=== PATIENT | female | born 1980 | race Caucasian/White ===

== ENCOUNTER 2018-08-02 13:35 | Day surgery (SDC) | payer BC, MEDICAID ==
[2018-08-02 14:16] LABS: ABS Basophils 0 10^3/ul (0-0.2); ABS Eosinophils 0 10^3/ul (0-0.6); ABS Lymphocytes 1.6 10^3/ul (1.0-4.8); ABS Monocytes 0.6 10^3/ul (0-0.8); ABS Neutrophils 5.2 10^3/ul (1.5-7.7); ABS Nucleated RBC 0 10^3/ul; Eosinophil % 0.4 %; Hematocrit 42 % (33-41); Hemoglobin 13.8 g/dL (12.0-16.0); Lymphocyte % 21.4 %; Mean Corpuscular HGB Conc 33 g/dL (31-36); Mean Corpuscular Hemoglobin 31 pg (27-31); Mean Corpuscular Volume 95 fL (80-97); Mean Platelet Volume 7.3 fL (7.4-10.4); Nucleated Red Blood Cells % 0.1; Platelet Count 269 10^3/uL (150-450); Red Cell Distribution Width 13 % (10.5-15); White Blood Count 7.5 10^3/uL (3.5-10.8)
--- NOTE | 2018-08-02 14:19 | ED ---
Abdominal Pain/Female - HPI Summary HPI Summary: Patient is a 37 y/o F presenting to ED with complaints of RLQ pain, nausea, increased frequency of urination, and hematuria. She is present with female friend, Katie. On July 04 2018, patient started taking progesterone as she has not had a period since [place] . Progesterone was finished July 13 2018 but the patient had not had period afterwards. Three days ago, 07/30/18, patient came to [place] for a visit. Patient lives in [place] but is in [place] visiting as she is originally from this area. That day, 07/30/18, she reports experiencing an episode of hematuria. She notes no blood in underwear at the time. The next time she went to the bathroom that day, she saw blood in toilet once more. When she wiping there was minimal blood, therefore she does not believe it was vaginal bleeding. She called day habilitation specialist doctor in OBGYN at [place] where she is from, was advised to follow up in two days Friday. Yesterday, 08/01/18, urine was "normal" but hematuria returned later in the day. This morning, patient states she had increased urination frequency and RLQ abdominal pain. She notes that she has had what she describes as cramping period pain since 07/30/18 with onset of hematuria but she describes present pain from today as different. Pain is rated 8/10 in room. She took ibuprofen this morning at 0800, 800 mg. No PMHx of kidney stones. No radiation of pain reported, some diaphoresis noted earlier. Vomiting, fever is denied, states increased urgency of bowel movements, no diarrhea is reported. Last food patient had was almonds at around 0945 today, 08/02/18. No similar episodes of pain, no Hx of ovarian cyst is reported. Hx of irregular periods is noted, patient had a child 8.5 years ago, had previous miscarriage and as well. No dye allergy is noted. Phentermine and topamax is taken "short-term" per patient. PSHx of myringotomy. Patient's friend is agreeable to drive patient home. Patient is not sexually active, no chance of . FMHx of endometriosis in mother. Appendix, gallbladder is still present. She has picture of gross hematuria from previous days. In room, pulse 53, o2 100. Home medications and allergies are reviewed. On triage, pain is rated 8/10, nothing is noted to aggravate/alleviate Sx. Home medications and allergies are reviewed. Allergies Allergy/AdvReac Type Severity Reaction Status Date / Time No Known Allergies Allergy Verified 08/02/18 13:42 - History of Current Complaint Chief Complaint: EDAbdPain Stated Complaint: RIGHT ABD/FLANK PAIN BLOOD IN URINE PER PT Time Seen by Provider: 08/02/18 13:46 Hx Obtained From: Patient ?: No Onset/Duration: Lasting Days - Three days ago, 07/30/18, Still Present, Worse Since - this morning, RLQ pain, increased frequency of urination Timing: Constant - Three days ago, 07/30/18 Severity Initially: Moderate Severity Currently: Severe - 8/10 Pain Intensity: 8 Pain Scale Used: 0-10 Numeric - 8/10 Location: Discrete At: RLQ Radiates: No Character: Cramping - previously, since this morning pain has become "different " Aggravating Factor(s): Nothing Alleviating Factor(s): Nothing Associated Signs and Symptoms: Positive: Urinary Symptoms - hematuria, Nausea, Other: - increased frequency of urination, some diaphoresis, increased urgency of bowel movements. Negative: Fever, Vaginal Bleeding, Vomiting, Diarrhea Allergies/Adverse Reactions: Allergies Allergy/AdvReac Type Severity Reaction Status Date / Time No Known Allergies Allergy Verified 08/02/18 13:42 Home Medications: Home Medications Phentermine HCl 0.5 tab PO DAILY 08/02/18 [History Confirmed 08/02/18] Topiramate [Topamax] 25 - 50 mg PO BID 08/02/18 [History Confirmed 08/02/18] PMH/Surg Hx/FS Hx/Imm Hx Previously Healthy: Yes History: Reports: Other Problems/Disorders - no Hx of ovarian cysts Sensory History: Denies: Hx Legally Blind, Hx Deafness Opthamlomology History: Denies: Hx Legally Blind EENT History: Denies: Hx Deafness - Surgical History Surgery Procedure, Year, and Place: wisdom teeth removal Infectious Disease History: No Infectious Disease History: Denies: Traveled Outside the [place] in Last 30 Days - Family History Known Family History: Positive: Other - mother had endometriosis - Social History Lives: With Family Alcohol Use: Weekly Substance Use Type: Reports: None Smoking Status (MU): Former Smoker Review of Systems Positive: Skin Diaphoresis. Negative: Fever Cardiovascular: Negative Respiratory: Negative Positive: Abdominal Pain - RLQ , Nausea. Negative: Vomiting, Diarrhea Genitourinary: Other - NEGATIVE - VAGINAL BLEEDING Positive: frequency - increased frequency of urination , hematuria, urgency - increased urgency of bowel movements Skin: Negative Neurological: Negative Psychological: Normal All Other Systems Reviewed And Are Negative: Yes Physical Exam - Summary Physical Exam Summary: Appearance: Ill-appearing, moderate pain distress, well-nourished Skin: Warm, color reflects adequate perfusion, dry Head: Normal Head/Face inspection, atraumatic Eyes: Conjunctiva clear ENT: Normal inspection Neck: Supple, no nodes, no JVD Respiratory: Lungs clear, normal breath sounds, no respiratory distress Cardio: RRR, No murmur, pulses normal, brisk capillary refill Abdomen: Soft, RLQ tenderness with voluntary guarding, no rebound at RLQ, no distention, no masses, no CVA. Bowel sounds: Present Musculoskeletal: Strength Intact/ROM intact, no calf tenderness, no edema. Psychological: Normal Neuro: Alert, muscle tone normal, no focal deficit Triage Information Reviewed: Yes Vital Signs On Initial Exam: Initial Vitals Temp Pulse Resp BP Pulse Ox 98.0 F 58 16 126/75 100 08/02/18 13:42 08/02/18 13:42 08/02/18 13:42 08/02/18 13:42 08/02/18 13:42 Vital Signs Reviewed: Yes Diagnostics - Vital Signs Vital Signs Temp Pulse Resp BP Pulse Ox 08/02/18 13:42 98.0 F 58 16 126/75 100 - Laboratory Result Diagrams: 08/02/18 14:10 08/02/18 14:10 Lab Statement: Any lab studies that have been ordered have been reviewed, and results considered in the medical decision making process. - Radiology ABDOMEN X-RAY Radiology Interpretation Completed By: Radiologist Summary of Radiographic Findings: IMPRESSION: NONOBSTRUCTIVE BOWEL GAS PATTERN. LARGE AMOUNT OF STOOL THROUGHOUT THE COLON. THIS REPORT WAS REVIEWED BY DR. WALDROP. - Ultrasound No standard instances Ultrasound Interpretation Completed By: Radiologist Summary of Ultrasound Findings: RENAL US IMPRESSION: RIGHT-SIDED HYDRONEPHROSIS. NO RIGHT URETERAL JET IS IDENTIFIED. THIS REPORT WAS REVIEWED BY DR. WALDROP. Re-Evaluation - Re-Evaluation First Eval Re-Evaluation Time: 16:05 Comment: Renal US report returned. No urologist day habilitation specialist on this date, 08/02/18, will attempt to contact Dr. Dumont regardless. Results of US were discussed with patient, patient is agreeable with surgery if needed. Abdominal Pain Fem Course/Dx - Course Course Of Treatment: 37 yo F presents with RLQ abd pain and gross hematuria. Found to have hydronephrosis with no ureteral jet. KUB neg. Urine with bacteria. No comorbidities. Last meal 0945. Last liquid 4 oz tea at 10:30am. Dr. Dumont to place urinary stent. Ceftriaxone 2 gms IV given in ED. Toradol 30mg IV given for pain early in ED course. Pt to OR, consents. - Diagnoses Provider Diagnoses: Hydronephrosis, Ureteral calculus, Abdominal pain, Gross hematuria - Provider Notifications Discussed Care Of Patient With: Joseph Dumont Time Discussed With Above Provider: 16:26 Instructed by Provider To: Other - Discussed with Dr. Dumont, agreeable with admission to OR. Discharge - Sign-Out/Discharge Documenting (check all that apply): Patient Departure - admit OR All imaging exams completed and their final reports reviewed: No Studies Patient Received Moderate/Deep Sedation with Procedure: No - Discharge Plan Condition: Good Disposition: ADMITTED TO [facility] - Billing Disposition and Condition Condition: GOOD Disposition: Admitted to [facility] - Attestation Statements Document Initiated by Skyler: Yes Documenting Scribe: MAGDIEL CLARK Provider For Whom Scribe is Documenting (Include Credential): IZZY WALDROP MD Scribe Attestation: MAGDIEL Rodriguez, scribed for IZZY WALDROP MD on 08/02/18 at 1736. Scribe Documentation Reviewed: Yes Provider Attestation: The documentation as recorded by the MAGDIEL isabel accurately reflects the service I personally performed and the decisions made by me, IZZY WALDROP MD Status of Scribe Document: Viewed
[2018-08-02 14:21] LABS: INR 0.99 (0.82-1.09)
[2018-08-02] MEDS ORDERED: Ketorolac INJ* 30 MG/ML 1 ML VIAL IV PUSH ONE (14:27)
[2018-08-02 14:35] LABS: ALT 24 U/L (7-52); AST 28 U/L (13-39); Albumin 4.3 g/dL (3.2-5.2); Albumin/Globulin Ratio 1.9 (1-3); Alkaline Phosphatase 59 U/L (34-104); Amylase 39 U/L (29-103); Anion Gap 7 mmol/L (2-11); BUN/Creatinine Ratio 17.2 (8-20); Blood Urea Nitrogen 20 mg/dL (6-24); C Reactive Protein < 1.00 mg/L (<8.01); CO2 Carbon Dioxide 24 mmol/L (22-32); Chloride 110 mmol/L (101-111); Creatine Kinase 265 U/L (10-223); EGFR Non-African American 52.9 (>60); Globulin 2.3 g/dL (2-4); Glucose 105 mg/dL (70-100); Magnesium 2.1 mg/dL (1.9-2.7); Potassium 4.1 mmol/L (3.5-5.0); Sodium 141 mmol/L (135-145); Total Protein 6.6 g/dL (6.4-8.9)
[2018-08-02 14:39] LABS: HCG Pregnancy < 0.60 mIU/mL
[2018-08-02 15:55] LABS: Urine Appearance Cloudy; Urine Bacteria 1+ (Absent); Urine Bilirubin Negative (Negative); Urine Blood 3+ (Negative); Urine Color Amber; Urine Glucose Negative (Negative); Urine Ketones Trace (Negative); Urine Nitrite Negative (Negative); Urine Protein 1+(30 mg/dL) (Negative); Urine Red Blood Cell 3+(>10/hpf) (Absent); Urine Specific Gravity 1.029 (1.010-1.030); Urine Squamous Epithelial Cell Present (Absent); Urine Urobilinogen Negative (Negative); Urine White Blood Cell Trace(0-5/hpf) (Absent)
[2018-08-02] MEDS ORDERED: cefTRIAXone(*) 2 GM in NS 0.9% 100 ML* 100 ML IVPB ONE (16:38)
[2018-08-02] MEDS ORDERED: Lidocaine 2% PF * 5 ML VIAL ONE (16:48)
[2018-08-02] MEDS ORDERED: Dexamethasone IV* 4 MG/ML 1 ML (4 MG) ONE (16:48)
[2018-08-02] MEDS ORDERED: fentaNYL* 50 MCG/ML 2 ML VIAL (100 MCG VIAL) ONE ×2 (16:48→18:20)
[2018-08-02] MEDS ORDERED: Ondansetron INJ* 2 MG/ML VIAL ONE (16:48)
[2018-08-02] MEDS ORDERED: Propofol* 10 MG/ML 20 ML BTL ONE (16:48)
[2018-08-02] MEDS ORDERED: KETAMINE HCL* 50 MG/ML 10 ML VIAL ONE (16:48)
[2018-08-02] MEDS ORDERED: Midazolam* 1 MG/ML 10 ML VIAL (10 MG) ONE (16:49)
[2018-08-02] MEDS ORDERED: Iohexol 180 (CONTRAST) 10 ML SDV IV ONE (17:18)
[2018-08-02] MEDS ORDERED: Ondansetron INJ* 2 MG/ML VIAL IV PRN ×2 (17:22→18:37)
[2018-08-02] MEDS ORDERED: Acetaminophen TAB* 325 MG PO PRN (17:22)
[2018-08-02] MEDS ORDERED: Gentamicin ADULT (*) 40 MG/ML VIAL (2 ML VIAL = 80 MG) ONE (17:28)
[2018-08-02] MEDS ORDERED: NS 0.9% 1000 ML** 1,000 ML IV SCH (17:30)
[2018-08-02] MEDS ORDERED: fentaNYL* 50 MCG/ML 2 ML VIAL (100 MCG VIAL) IV PRN (18:37)
[2018-08-02] MEDS ORDERED: Naloxone* 0.4 MG/ML 1 ML VIAL IV PRN (18:37)
[2018-08-02 19:07] VITALS: BP 113/66
[2018-08-02] MEDS ORDERED: Acetaminophen TAB* 325 MG ONE (19:22)
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
--- NOTE | 2018-08-03 10:56 | OP ---
DATE OF OPERATION: 08/02/18 - [facility] DATE OF : 82 SURGEON: Joseph Dumont MD ANESTHESIOLOGIST: Dr. Verdin. ANESTHESIA: General. PRE-OP DIAGNOSES: 1. Right hydronephrosis. 2. Calculus, right ureter. POST-OP DIAGNOSES: 1. Right hydronephrosis. 2. Calculus, right ureter. OPERATIVE PROCEDURE: 1. Cystoscopy. 2. Right retrograde pyelogram. 3. Right ureteroscopy. 4. Laser lithotripsy of calculus, right ureter. 5. Removal of calculus fragments. 6. Right stent insertion. COMPLICATIONS: None. STENT USED: A 6-Maldivian stent, right ureter. POSTOPERATIVE CONDITION: Stable. INDICATIONS: Bird Jara is a 37-year-old lady who was evaluated for right flank pain and gross hematuria secondary to an obstructing calculus in the right ureter. DESCRIPTION OF PROCEDURE: After induction of general anesthesia, the patient was placed in the dorsal lithotomy position. Sequential compression devices were in place and functioning. Initial cystoscopy revealed a normal-appearing bladder. A guidewire was introduced into the right ureter. Resistance was encountered a few centimeters above the ureterovesical junction and the wire was carefully manipulated proximally. Retrograde pyelogram revealed fairly severe right hydronephrosis with proximal right hydroureter. A 6-Maldivian semi- rigid ureteroscope was introduced and advanced under direct vision about 4 to 5 cm above the ureterovesical junction, approximately 7-mm calculus was noted to be impacted with surrounding edema and inflammation. Using a 550-micron Holmium laser fiber, this was successfully broken up into multiple fragments and all of the fragments were retrieved with a grasper and sent for analysis. At the end of the procedure, there were no remaining fragments and a 6-Maldivian stent was introduced and positioned under fluoroscopy with good proximal and distal positioning obtained. The bladder was emptied. The patient tolerated the procedure satisfactorily and was transferred back to the recovery area in stable condition. [id number]/[facility] #: [id number] [facility]PITAL[facility]andana
[2018-08-03] MEDS ORDERED: cefTRIAXone(*) 1 GM in NS 0.9% 50 ML* 50 ML IVPB SCH (18:00)
== END 2018-08-02 20:37 | disposition home or self-care (01) ==
LOC: ED 13:35 → OR 16:44
PROVIDERS: ATTEND Urology
DX: N13.2 Hydronephrosis with renal and ureteral calculous obstruction (principal); R31.0 Gross hematuria; R10.31 Right lower quadrant pain; R11.0 Nausea; Z87.891 Personal history of nicotine dependence; N92.6 Irregular menstruation, unspecified
CPT/HCPCS: 36415; 74018; 74420; 76775; 80053; 81003; 81015; 82150; 82365; 82550; 83605; 83690; 83735; 84702; 85025; 85610; 86140; 87086; 99285; A9270-GY; C1876; J0696; J1100; J1580; J1885; J2250; J2405; J2704; J3010